=== PATIENT | female | born 1970 | race Caucasian/White ===

== ENCOUNTER 2016-06-10 21:44 | Inpatient (IN) | payer MEDICAID, OTHER ==
[~2016-06-10] VITALS: Ht 175.3 cm; Wt 82.1 kg
[~2016-06-10 21:44] MED LIST: LEVO500T15 PO; LORA-258 PO
[2016-06-10] MEDS ORDERED: GENTAMICIN SULFATE INJ 80 MG in IV DEXTROSE 5% 100 ML IV ONE (22:30)
[2016-06-10] MEDS ORDERED: IV NORMAL SALINE 1000 ML BAG IV ONE (22:30)
[2016-06-10] MEDS ORDERED: VANCOMYCIN IV 1,000 MG in IV DEXTROSE 5% 250 ML IV ONE (22:30)
[2016-06-10] MEDS ORDERED: VANCOMYCIN IV 200 ML ONE (22:47)
[2016-06-10 22:52] LABS: ALBUMIN 3.2 g/dL (3.4-5.0); BILIRUBIN,DIRECT 0.1 mg/dL (0.0-0.2); BILIRUBIN,TOTAL 0.3 mg/dL (0.2-1.0); CALCIUM 8.4 mg/dL (8.5-10.1); CREATININE 0.7 mg/dL (0.6-1.3); POTASSIUM 3.6 mmol/L (3.5-5.1); TOTAL PROTEIN, SERUM 6.8 g/dL (6.4-8.2)
[2016-06-10 22:53] LABS: BASOPHILS # (AUTO) 0.1 K/uL (0.0-0.2); BASOPHILS % (AUTO) 0.8 % (0.0-2.0); EOSINOPHILS # (AUTO) 0.1 K/uL (0.0-0.7); HEMATOCRIT 40.6 % (37.0-47.0); HEMOGLOBIN 13.9 g/dL (12.0-16.0); LYMPHOCYTES # (AUTO) 1.8 K/uL (0.8-4.8); LYMPHOCYTES % (AUTO) 26.9 % (20.5-51.5); MEAN CORPUSCULAR HEMOGLOBIN 30.7 uug (27.0-31.0); MEAN CORPUSCULAR HGB CONC 34 g/dL (32.0-37.0); MEAN CORPUSCULAR VOLUME 89.5 fL (81.0-99.0); MONOCYTES # (AUTO) 0.7 K/uL (0.1-1.30); MONOCYTES % (AUTO) 9.8 % (0.0-11.0); NEUTROPHILS % (AUTO) 60.5 % (38.5-71.5); PLATELET COUNT (AUTO) 273 K/uL (150-450); RED BLOOD CELL COUNT(AUTO) 4.54 MIL/uL (4.20-5.40); RED CELL DISTRIBUTION WIDTH 12.4 % (11.5-14.5); TROPONIN I < 0.017 ng/mL (0.00-0.056); WHITE BLOOD COUNT (AUTO) 6.7 K/uL (4.0-11.2)
[2016-06-10 22:54] LABS: LACTIC ACID 1.4 mmol/L (0.4-2.0)
[2016-06-11] MEDS ORDERED: GENTAMICIN SULFATE 80 MG/2 ML VIAL ONE (00:06)
[2016-06-11 00:45] VITALS: BP 104/71
--- NOTE | 2016-06-11 00:50 | NUR ---
PT WAS BROUGHT IN TO FLOOR VIA GURNEY. ADMITTED TO MED SURG UNDER CARE OF DR. WONG. INITIATE ADMISSION ASSESSMENTS. BELONGING LISTS REVIEWED. WILL CALL FOR ORDERS.
[2016-06-11] MEDS ORDERED: ONDANSETRON 4 MG/2 ML VIAL IV PRN (01:15)
[2016-06-11] MEDS ORDERED: ACETAMINOPHEN 325 MG TABLET PO PRN (01:15)
[2016-06-11] MEDS ORDERED: ZOLPIDEM 5 MG TABLET PO PRN (01:15)
[2016-06-11] MEDS ORDERED: LORAZEPAM 2 MG/1 ML VIAL IV PRN (01:15)
[2016-06-11] MEDS: IV 1/2NS 1000 ML 1,000 ML IV PRN ×2 (01:27→19:55)
[2016-06-11 05:36] VITALS: BP 111/72
[2016-06-11] MEDS ORDERED: PIPERACILLIN SODIUM/TAZO 3.375 GM VIAL ONE (06:05)
[2016-06-11] MEDS: PIPERACILLIN/TAZOBACTAM/D5W 3.375 G in PREMIXED 1 EACH IV SCH ×3 (06:07→23:30)
[2016-06-11 06:57] LABS: MAGNESIUM 2.1 mg/dL (1.8-2.4); PHOSPHOROUS 3.4 mg/dL (2.5-4.9)
[2016-06-11 07:00] LABS: BASOPHILS # (AUTO) 0.1 K/uL (0.0-0.2); BASOPHILS % (AUTO) 1.3 % (0.0-2.0); EOSINOPHILS # (AUTO) 0.2 K/uL (0.0-0.7); EOSINOPHILS % (AUTO) 2.9 % (0.0-7.0); HEMOGLOBIN 13.5 g/dL (12.0-16.0); LYMPHOCYTES # (AUTO) 1.8 K/uL (0.8-4.8); LYMPHOCYTES % (AUTO) 31.3 % (20.5-51.5); MEAN CORPUSCULAR HEMOGLOBIN 30.4 uug (27.0-31.0); MEAN CORPUSCULAR HGB CONC 34 g/dL (32.0-37.0); MEAN CORPUSCULAR VOLUME 90.1 fL (81.0-99.0); MONOCYTES # (AUTO) 0.7 K/uL (0.1-1.30); MONOCYTES % (AUTO) 12.5 % (0.0-11.0); PLATELET COUNT (AUTO) 275 K/uL (150-450); RED BLOOD CELL COUNT(AUTO) 4.44 MIL/uL (4.20-5.40); RED CELL DISTRIBUTION WIDTH 12.7 % (11.5-14.5); WHITE BLOOD COUNT (AUTO) 5.8 K/uL (4.0-11.2)
--- NOTE | 2016-06-11 07:00 | NUR ---
PATIENT RECEIVED IN ROOM. ALERT AWAKE IN NO ACUTE DISTRESS. RESPIRATIONS EVEN AND UNLABORED. IVF RUNNING 1/2 NS AT 70 CC/HR. BRP. CALL LIGHT AT REACH.
--- NOTE | 2016-06-11 07:12 | NUR ---
PT SLEPT THROUGHT THE NIGHT. IN NO ACUTE SIGNS OF DISTRESS. AMBULATORY TO THE BATHROOM. IVF INFUSING. PICTURES TAKEN FOR SKIN ISSUES. PLACED IN CHART. SAFETY MEASURES IN PLACE. CALL LIGHT WITHIN REACH.
[2016-06-11] MEDS: MULTIVITAMINS,THERAPEUTIC TABLET PO SCH (08:35)
[2016-06-11] MEDS: THIAMINE HCL 100 MG TABLET PO SCH (08:35)
[2016-06-11] MEDS: PANTOPRAZOLE SODIUM 40 MG TABLET.DR PO SCH (08:35)
[2016-06-11] MEDS: FOLIC ACID 1 MG TABLET PO SCH (08:35)
--- NOTE | 2016-06-11 08:35 | NUR ---
Clinical Pharmacy Note: Vancomycin Dosing per Pharmacy Subjective: Vancomycin IV to start on this patient for cellulitis. Patient received vancomycin 1gm IVPB x1 dose in ED on 06/10 at 2242 Objective: BUN 11/Scr 0.7 (06/10) WBC 5.8 Temperature 98 wt 181 lb hr 69'' Assessment/Plan: Will start vancomycin 1250mg IVPB Q11hr for a predicted vancomycin steady state trough level of 15 mcg/ml. First dose is due today at 0900. Will draw a vancomycin trough level prior to the 4th dose of vancomycin (not ordered yet). Will monitor renal function and adjust vancomycin dose, if needed, should renal function change significantly. Will follow daily.
[2016-06-11] MEDS: VANCOMYCIN IV 1,250 MG in IV DEXTROSE 5% 500 ML IV SCH ×2 (08:36→19:59)
[2016-06-11 11:10] VITALS: BP 100/61
[2016-06-11 15:11] VITALS: BP 107/67
--- NOTE | 2016-06-11 18:00 | NUR ---
END OF SHIFT NOTE: PATIENT IN NO ACUTE DISTRESS THROUGHOUT SHIFT. DENIED PAIN. VSS. AFEBRILE. DRESSING TO LFA C/D/I. IVF RUNNING. BRP. INDEPENDENT WITH ADLs. NEEDS MET BY STAFF.
[2016-06-11 20:00] VITALS: BP 107/71
[2016-06-11] MEDS: LACTOBACILLUS RHAMNOSUS GG 1 EACH CAPSULE PO SCH (20:03)
[2016-06-12] MEDS: PIPERACILLIN/TAZOBACTAM/D5W 3.375 G in PREMIXED 1 EACH IV SCH ×2 (05:03→15:02)
[2016-06-12 05:30] VITALS: BP 104/67
[2016-06-12] MEDS: VANCOMYCIN IV 1,250 MG in IV DEXTROSE 5% 500 ML IV SCH (06:20)
[2016-06-12] MEDS: PANTOPRAZOLE SODIUM 40 MG TABLET.DR PO SCH (06:21)
--- NOTE | 2016-06-12 07:58 | NUR ---
PATIENT RECEIVED IN ROOM RESTING WITH EYES CLOSED IN NO ACUTE DISTRESS. RESPIRATIONS EVEN AND UNLABORED. IVF RUNNING 1/2 NS AT 70 ML/HR. SAFETY MAINTAINED. CALL LIGHT AT REACH.
[2016-06-12] MEDS: FOLIC ACID 1 MG TABLET PO SCH (08:44)
[2016-06-12] MEDS: THIAMINE HCL 100 MG TABLET PO SCH (08:44)
[2016-06-12] MEDS: LACTOBACILLUS RHAMNOSUS GG 1 EACH CAPSULE PO SCH (08:44)
[2016-06-12] MEDS: MULTIVITAMINS,THERAPEUTIC TABLET PO SCH (08:44)
[2016-06-12 10:34] LABS: BASOPHILS # (AUTO) 0.1 K/uL (0.0-0.2); BASOPHILS % (AUTO) 1.1 % (0.0-2.0); EOSINOPHILS # (AUTO) 0.1 K/uL (0.0-0.7); EOSINOPHILS % (AUTO) 2.8 % (0.0-7.0); HEMATOCRIT 43.7 % (37.0-47.0); HEMOGLOBIN 14.6 g/dL (12.0-16.0); LYMPHOCYTES # (AUTO) 1.5 K/uL (0.8-4.8); LYMPHOCYTES % (AUTO) 30.5 % (20.5-51.5); MEAN CORPUSCULAR HEMOGLOBIN 30.4 uug (27.0-31.0); MEAN CORPUSCULAR HGB CONC 34 g/dL (32.0-37.0); MEAN CORPUSCULAR VOLUME 90.7 fL (81.0-99.0); MONOCYTES # (AUTO) 0.4 K/uL (0.1-1.30); MONOCYTES % (AUTO) 8.6 % (0.0-11.0); NEUTROPHILS # (AUTO) 2.8 K/uL (1.8-8.9); PLATELET COUNT (AUTO) 281 K/uL (150-450); RED BLOOD CELL COUNT(AUTO) 4.82 MIL/uL (4.20-5.40); RED CELL DISTRIBUTION WIDTH 12.1 % (11.5-14.5); WHITE BLOOD COUNT (AUTO) 4.9 K/uL (4.0-11.2)
[2016-06-12 10:50] LABS: BILIRUBIN,TOTAL 0.3 mg/dL (0.2-1.0); CALCIUM 8.4 mg/dL (8.5-10.1); CREATININE 0.7 mg/dL (0.6-1.3); PHOSPHOROUS 3.3 mg/dL (2.5-4.9); POTASSIUM 4.2 mmol/L (3.5-5.1); TOTAL PROTEIN, SERUM 6.6 g/dL (6.4-8.2)
[2016-06-12 11:12] LABS: THYROID STIMULATING HORMONE 1.813 mIU/mL (0.358-3.740)
[2016-06-12 11:55] VITALS: BP 102/63
--- NOTE | 2016-06-12 11:59 | NUR ---
Clinical Pharmacy Note: Vancomycin Dosing per Pharmacy Subjective: Vancomycin IV to continue on this patient for cellulitis. Objective: BUN 11/Scr 0.7 (/) WBC 5.8 (/) Temperature 98.1 wt 181 lb hr 69'' Assessment/Plan: Will continue vancomycin 1250mg IVPB Q11hr for today. Will draw a vancomycin trough level prior to the 4th dose of vancomycin (ordered for today at 1730). Pharmacy shall review the level when available & adjust the dose if needed. Will monitor renal function and adjust vancomycin dose, if needed, should renal function change significantly. Will follow daily.
[2016-06-12 12:17] LABS: *BILIRUBIN,URIN NEGATIVE (NEGATIVE); *BLOOD, URINE Trace-lysed (NEGATIVE); *CLARITY,URINE CLEAR (CLEAR); *COLOR,URINE YELLOW (YELLOW); *KETONES,URINE NEGATIVE (NEGATIVE); *PROTEIN,URINE NEGATIVE (NEGATIVE); *UROBILINOGEN,URINE 0.2 E.U./dl (NORMAL); LEUKOCYTE ESTERASE ,URINE NEGATIVE (NEGATIVE); NITRITE, URINE NEGATIVE (NEGATIVE); UGLUCOSE NEGATIVE (NEGATIVE)
--- NOTE | 2016-06-12 13:47 | NUR ---
WOUND CARE CONSULT: PT PRESENTS WITH OPEN WOUND TO LEFT WRIST WITH SURROUNDING REDNESS. WOUND NOT PROBED DUE TO TENDERNESS. PT AWAITING SURGICAL CONSULT. SMALL DRY SCABS TO POSTERIOR ANKLES. PT STATES SCABS ARE FROM HER SHOES. PT ABLE TO REPOSITION HERSELF IN BED. RECOMMENDATIONS MADE FOR WOUND CARE AND SKIN PROTECTION. DISCUSSED WITH NURSING STAFF. IN AGREEMENT WITH PLAN OF CARE. Addendum: 06/12/16 at 1349 by PENELOPE VIVEROS RN Amended: Links added.
[2016-06-12 15:34] VITALS: BP 96/62
--- NOTE | 2016-06-12 17:00 | NUR ---
PATIENT STATED SHE NEEDED TO LEAVE TO CHECK ON HER BOYFRIEND WHO HAS PTSD. STATED THAT SHE NEEDED TO LEAVE AND SHE WOULD SIGNED A WAVER. PATIENT STATES SHE HAS NO WAY OF CONTACTING HER BOYFRIEND SINCE THEY ARE HOMELESS. RISKS AND BENEFITS EXPLAINED AND VOICED UNDERSTANDING. STATES SHE WILL GO TO [facility] AFTER SHE CHECKS ON HER BOYFRIEND TO CONTINUE [place].
--- NOTE | 2016-06-12 17:20 | NUR ---
PATIENT'S BOYFRIEND SHOWED UP AND PATIENT STILL WANTED TO LEAVE AMA. AMA FORM SIGNED. REFUSED [employer] PAPER WORK. IV REMOVED, PRESSURE APPLIED AND HEMOSTASIS ACHIEVED.
[2016-06-12] MEDS ORDERED: TRAZODONE 50 MG TABLET PO SCH (21:00)
[2016-06-12 21:27] LABS: BACTERIA,URINE RARE /HPF (NONE SEEN); RBC,URINE 0-3 /HPF (0-3); SQUAMOUS EPITHELIAL CELL,UR MODERATE /HPF (NONE SEEN); TRICHOMONAS,URINE PRESENT /HPF (NONE SEEN)
== END 2016-06-12 17:15 | disposition left against medical advice (07) | DRG 720 ==
LOC: ER 21:44 → MED 06-11 00:30
PROVIDERS: ADMIT Internal Medicine; ATTEND Internal Medicine
DX: A41.9 Sepsis, unspecified organism (principal); E44.0 Moderate protein-calorie malnutrition; L03.114 Cellulitis of left upper limb; Z85.41 Personal history of malignant neoplasm of cervix uteri; Z59.0 Homelessness; F10.239 Alcohol dependence with withdrawal, unspecified; F12.90 Cannabis use, unspecified, uncomplicated; F17.210 Nicotine dependence, cigarettes, uncomplicated; M86.9 Osteomyelitis, unspecified; Z87.440 Personal history of urinary (tract) infections; F19.10 Other psychoactive substance abuse, uncomplicated; F32.9 Major depressive disorder, single episode, unspecified; R73.9 Hyperglycemia, unspecified; Z68.26 Body mass index [BMI] 26.0-26.9, adult
CPT/HCPCS: 36415; 70030-TC; 71010; 73090; 83605; 83735; 84100; 84443; 84703; 85025; 85730; 87040; 87086; 93005; A4663; J1580; J2543; J3370; J3490; J7030; J7040; J7060

== ENCOUNTER 2017-05-26 21:13 | Emergency (ER) | payer MEDICAID ==
[~2017-05-26] VITALS: Ht 175.3 cm; Wt 72.6 kg
--- NOTE | 2017-05-26 21:35 | NUR ---
Dr. Murphy at bedside for MSE.
--- NOTE | 2017-05-26 21:40 | NUR ---
Patient came to ER with steady gait, c/o abscess on left arm.
--- NOTE | 2017-05-26 21:43 | NUR ---
Patient given written and verbal discharge instructions. Patient verbalizes understanding of instructions. Patient is ambulatory with steady gait. Refuses offer of jail placement. Patient given list of available shelters in surrounding area. Patient ambulated out of ER with steady gait, VSS, no acute signs of distress, all belongings taken.
[2017-05-26 21:46] VITALS: BP 111/76
== END 2017-05-26 21:47 | disposition home or self-care (01) ==
LOC: ER 21:15
DX: G89.29 Other chronic pain (principal); M79.602 Pain in left arm; F10.20 Alcohol dependence, uncomplicated; Z71.6 Tobacco abuse counseling; F17.210 Nicotine dependence, cigarettes, uncomplicated; Z59.0 Homelessness
CPT/HCPCS: A4217; A4663